=== PATIENT | male | born 1965 | race Caucasian/White ===

== ENCOUNTER 2016-08-26 11:57 | Emergency (ER) | payer OTHER ==
[~2016-08-26] VITALS: Ht 170.2 cm; Wt 77.1 kg
[2016-08-26 12:08] VITALS: BP 147/89
--- NOTE | 2016-08-26 15:42 | ED HAND/WRIST INJURY COMPLAINT ---
History of Present Illness General Chief Complaint: Laceration Procedure Stated Complaint: LAC TO LFT FINGER Source: patient Exam Limitations: no limitations Vital Signs & Intake/Output Vital Signs & Intake/Output Vital Signs Date Time Temp Pulse Resp B/P Pulse O2 O2 Flow FiO2 Ox Delivery Rate 08/26 1551 Room Air 08/26 1208 97.5 75 20 147/89 99 Room Air Allergies Uncoded Allergies: CILLINS (Intermediate, DO NOT WORK 03/28/11) Triage Note: PT TO ED C/O LAC TO LEFT INDEX FINGER. SUSTAINED FRIDAY AFTERNOON FROM A KNIFE. PT STATES LAST TETANUS SHOT ABOUT 2 YEARS AGO. BANDAID OVER LAC, NOT VISUALIZED IN TRIAGE. NO BLEEDING THROUGH BANDAID NOTED. PT CONCERNED "I HIT A TENDON, I PLAY GUITAR". Triage Nurses Notes Reviewed? yes Duration: day(s): (3), constant, continues in ED Timing: recent history Injury Environment: home Pain/Injury Location: Left: 2nd finger. HPI: 51-year-old male comes into emergency room for further evaluation of a laceration to his left second finger 3 days ago. Patient reports that he punctured himself with a knife by accident. Patient reports that he comes in now for further evaluation. Denies any redness on discharge fever chills. Some associated swelling to the area. Some limited range of motion. Patient was concerned about possible tendon injury. Patient at the lateral aspect of his left second digit. (PATTY CHI) Past History Travel History Traveled to [place] past 21 day No Medical History Any Pertinent Medical History? see below for history Neurological: VASOVAGAL Respiratory: 20% LUNG CAPACITY Surgical History Surgical History: non-contributory Psychosocial History What is your primary language Indonesian Tobacco Use: Never used ETOH Use: occasional use Illicit Drug Use: denies illicit drug use Family History Hx Contributory? No (PATTY CHI) Review of Systems Review of Systems Constitutional: Reports: no symptoms. EENTM: Reports: no symptoms. Respiratory: Reports: no symptoms. Cardiovascular: Reports: no symptoms. GI: Reports: no symptoms. Genitourinary: Reports: no symptoms. Musculoskeletal: Reports: see HPI. Skin: Reports: see HPI. Neurological/Psychological: Reports: no symptoms. Hematologic/Endocrine: Reports: no symptoms. Immunologic/Allergic: Reports: no symptoms. All Other Systems: Reviewed and Negative (PATTY CHI) Physical Exam Physical Exam General Appearance: well developed/nourished Head: atraumatic Eyes: Bilateral: normal appearance. Ears, Nose, Throat: normal ENT inspection, hearing grossly normal Neck: normal inspection Cardiovascular/Respiratory: no respiratory distress Back: normal inspection Hand Left: 2nd finger (small puncture/laceration), completely approximated, no erythema, no warmth/discharge, some mild soft tissue swelling. Limited range of motion. Difficulty extending finger completely Hand Right: normal inspection Neurologic/Tendon: normal sensation, normal motor functions, responds to pain, no evidence tendon injury, no pulse deficit Skin: intact, normal color, warm/dry Lymphatic: no anterior cervical alex (PATTY CHI) Progress Differential Diagnosis: felon, fracture, septic arthritis, sprain, tenosynovitis , soft tissue foreign body, tendon laceration, Plan of Care: Orders Procedure Date/time Status XRY-FINGERS, LEFT 08/26 1541 Active Comments: 08/26/2016 5:45:24 PM No suspicion for tendon laceration at this time. Limited range of motion secondary to swelling. There is no signs of infection. Patient will have wound observed. No need for antibiotics at this time. (PATTY CIH) Departure Departure Disposition: HOME OR SELF CARE Condition: Stable Clinical Impression Primary Impression: Puncture wound of finger Referrals: RANDY GRIFFIN MD (PCP/Family) Additional Instructions: Return if any redness swelling discharge fever or chills. Return if any other concerns worsening symptoms. Please go over all results of today's visit with your primary care doctor. Contact your primary care doctor to let them know you were here in the emergency room. There may be nonspecific findings which may not be related to your visit today here in the emergency room but may require further evaluation and chronic monitoring by your primary care doctor. If you had a laceration today the chance of foreign body always remains. You should follow-up with your primary care doctor for recheck in 3-5 days for a wound check. If you had an x-ray done there is a chance that a fracture could have been missed on initial read and you should follow-up with your primary care doctor for repeat x-rays if symptoms persist. If your blood pressure was elevated here in the emergency room please have rechecked by her primary care doctor within the next 48 hours by your primary care doctor. If you were prescribed a narcotic here in the emergency room or any type of controlled substances you're not allowed to drive while taking this medication or operate any type of heavy machinery. Narcotics can make you feel lightheaded dizziness nausea and can cause constipation. You may need to machine pecan picker a stool softener. Thank you for choosing [facility] emergency room. Please return to the emergency room immediately if you have any other concerns worsening of symptoms. Departure Forms: Customer Survey General Discharge Information (PATTY CHI) PA/SHEET METAL ERECTOR Co-Sign Statement Statement: ED Attending supervision documentation- [] I saw and evaluated the patient. I have also reviewed all the pertinent lab results and diagnostic results. I agree with the findings and the plan of care as documented in the PA's/SHEET METAL ERECTOR's documentation. [X] I have reviewed the ED Record and agree with the PA's/SHEET METAL ERECTOR's documentation. [] Additions or exceptions (if any) to the PAs/SHEET METAL ERECTOR's note and plan are summarized below: [] (AUGUSTA CELESTIN,RANJEET)
--- NOTE | 2016-08-26 16:19 | RADIOLOGY REPORT ---
EXAMINATION: XR FINGER, LEFT CLINICAL INFORMATION: Concern for fracture left index finger. Pain after cutting on shelf COMPARISON: None TECHNIQUE: Three views of the left index finger. FINDINGS: The bones and soft tissues are normal. No fracture. Alignment is anatomic. Joint spaces are maintained. IMPRESSION: Normal left index finger radiographs.
== END 2016-08-26 16:35 ==
LOC: ERH 11:57
DX: S61.231A Puncture wound without foreign body of left index finger without damage to nail, initial encounter (principal); W26.0XXA Contact with knife, initial encounter
CPT/HCPCS: 73140-LT

== ENCOUNTER 2017-11-27 17:40 | Emergency (ER) | payer OTHER, MEDICARE ==
[~2017-11-27] VITALS: Ht 167.6 cm; Wt 77.1 kg
--- NOTE | 2017-11-27 17:48 | ED HEADACHE COMPLAINT ---
History of Present Illness General Chief Complaint: Headache Stated Complaint: SIB WALKIN, HEAD STRIKE, Source: patient Exam Limitations: no limitations Vital Signs & Intake/Output Vital Signs & Intake/Output Vital Signs Date Time Temp Pulse Resp B/P B/P Pulse O2 O2 Flow FiO2 Mean Ox Delivery Rate 11/27 1744 99.1 94 16 152/102 97 Room Air Allergies Uncoded Allergies: CILLINS (Intermediate, DO NOT WORK 03/28/11) Triage Nurses Notes Reviewed? yes Onset: 3 days ago Duration: day(s): Timing: recent history Quality/Severity: moderate Severity Numbers: 7 Head Injury Location: frontal HPI: 52YO MALE with hx of COPD presents to ED complaining of head injury 3 days ago. Patient was sent in by urgent care for further evaluation. Patient states he got hit in the head by a tree branch, he sustained superficial abrasion to forehead. No loss of conciousness following the injury. Patient reports persistent headache since injury, described as 7-8/10 currently. Patient also reports neck soreness since injury. Reports left arm and leg weakness since the injury. Patient also reports right eye blurry vision however no direct impact to eye. (Ceci Narvaez) Past History Travel History Traveled to [place] past 21 day No Medical History Any Pertinent Medical History? see below for history Neurological: VASOVAGAL Respiratory: 20% LUNG CAPACITY Tetanus Vaccine: 08/26/16 Surgical History Surgical History: non-contributory Psychosocial History What is your primary language Kyrgyz Family History Hx Contributory? No (Ceci Narvaez) Review of Systems Review of Systems Constitutional: Reports: no symptoms. Eyes: Reports: see HPI. Ears, Nose, Throat, Mouth: Reports: no symptoms. Respiratory: Reports: no symptoms. Cardiovascular: Reports: no symptoms. Gastrointestinal/Abdominal: Reports: no symptoms. Genitourinary: Reports: no symptoms. Musculoskeletal: Reports: see HPI. Skin: Reports: see HPI. Neurological/Psychological: Reports: see HPI. Hematologic/Endocrine: Reports: no symptoms. Endocrine: Reports: no symptoms. Immunologic/Allergic: Reports: no symptoms. All Other Systems: Reviewed and Negative (Ceci Narvaez) Physical Exam Physical Exam General Appearance: well developed/nourished, no apparent distress, alert, awake Head: linear superfical abrasion to forehead, no bony tenderness Eyes: Bilateral: normal appearance, PERRL, EOMI. Ears, Nose, Throat: normal pharynx, normal ENT inspection, hearing grossly normal, no hemotympanum Neck: normal inspection, supple, full range of motion, MILD tenderness to bilateral neck, no cervical deformity Respiratory: no respiratory distress Back: normal inspection, normal range of motion, no vertebral tenderness Extremities: normal inspection, normal range of motion Psychiatric: awake, alert, oriented x 3 Cranial Nerves: normal hearing, normal speech, PERRL, CN II-XII intact, strength 5/5 equal bilateral upper extremities Coordination/Gait: normal finger to nose Motor/Sensory: no motor/sensory deficits Skin: normal color, warm/dry, mild forehead abrasion as mentioned above Core Measures Sepsis Present: No Sepsis Focused Exam Completed? No (Bren LANDRY,Ceci Matthews) Progress Differential Diagnosis: cluster AGUILERA, IC mass/tumor, intracranial Hem., migraine AGUILERA, musculoskeletal pain, subarach. Hem., tension AGUILERA, concussion Plan of Care: CT imaging of head shows no acute ICH. Cervical spine without fractures. Patient 's headache likely related to concussion. Patient is neurologically intact, no focal neurologic deficit, he is answering questions readily, stead gait. Vital signs are stable, patient in no acute distress. I recommend vision testing here in the ED with eye chart however patient declined. I offered fluoroscene staining of eye to assess for corneal abrasions however patient declines. He prefers to follow up with his opthalmologist tomorrow. The patient reports he was wearing saftey glassess during the injury. The patient was given strict return precautions. The patient agrees with the plan of care. Diagnostic Imaging: Viewed by Me: CT Scan. Discussed w/RAD: CT Scan. Radiology Impression: PATIENT: POLO KELLY PRESENT AGE: 52 PATIENT ACCOUNT NO: [id number] : 66 LOCATION: [facility] ORDERING PHYSICIAN: Ceci LANDRY SERVICE DATE: 11/27/17 EXAM TYPE: CAT - CT CERV SPINE WO IV CONTRAST; CT HEAD WO IV CONTRAST EXAMINATION: CT HEAD WITHOUT CONTRAST CT CERVICAL SPINE WITHOUT CONTRAST CLINICAL INFORMATION: Status post head injury. Assess for fracture bleed. COMPARISON: None. TECHNIQUE: Multidetector CT imaging of the head and cervical spine was performed without the use of intravenous contrast. Coronal and sagittal reformatted images were generated at the technologist workstation. DLP: 935.15 mGy-cm. FINDINGS: CT head : There is no evidence of acute intracranial hemorrhage or territorial infarction. No abnormal mass-effect or midline shift is seen. Jones to white matter differentiation is well preserved. No extra-axial fluid collections are identified. The ventricles are normal in size. There is no abnormal attenuation within the brain parenchyma. The osseous structures and soft tissues are normal. The mastoid air cells and visualized portions of the paranasal sinuses are well- aerated. CT cervical spine: There is a mild levoscoliosis. Intervertebral disc heights are maintained. Vertebral body contours are normal and no fractures are seen. There is normal alignment of the facet joints. The lateral masses of C1 and C2 appear normally aligned and the dens is intact. Atlantooccipital articulations are maintained bilaterally. There are calcifications in the palatine tonsils bilaterally. There is no cervical lymphadenopathy. The thyroid gland appears normal. The visualized lung tobar are well-aerated. There are no pleural effusions or pneumothoraces. IMPRESSION: 1. There are no acute intracranial findings. There are no fractures or large scalp contusions or hematomas. 2. There are no acute fractures or subluxations in the cervical spine. DICTATED BY: Jose Melo MD DATE/TIME DICTATED:11/27/171838 REMOTE CODERS:PHYLICIA DATE/TIME TRANSCRIBED:11/27/171838 CONFIDENTIAL, DO NOT COPY WITHOUT APPROPRIATE AUTHORIZATION. <Electronically signed in Other Vendor System> SIGNED BY: Jose Melo MD 11/27/17 [id number] (Ceci Narvaez) Departure Departure Disposition: HOME OR SELF CARE Condition: Stable Clinical Impression Primary Impression: Head injury Qualifiers: Encounter type: initial encounter Qualified Code: S09.90XA - Unspecified injury of head, initial encounter Secondary Impressions: Blurry vision, right eye Referrals: Zan Alcantar MD (PCP/Family) Additional Instructions: Follow-up with either doctor, call to make an appointment for Friday. You were given information on signs and symptoms of a concussion. If you have any worsening symptoms or other concerns please return to emergency department. Please note that there might be incidental findings in your evaluation that are unrelated to the current emergency department visit. Please notify your primary care doctor about this emergency department visit in order to obtain and review all of the testing performed so that these incidental findings can be monitored as needed. If you had an x-ray performed, please understand that some fractures may not be seen on the initial set of x-rays. If your symptoms persist you might need a repeat set of x-rays to check for such a fracture. If you had a laceration evaluated, please understand that foreign bodies such as glass or wood may not be visible to the naked eye or on plain x-rays. If the wound becomes red, swollen, increasingly more painful or if there is any drainage from the wound, please have it reevaluated by a physician for the possibility of a retained foreign body. If you're unable to follow up as outlined in the discharge instructions please return to the emergency department. Thank you for choosing the [facility] Emergency Department for your care. It was a pleasure to serve you today. Departure Forms: Customer Survey General Discharge Information (Bren LANDRY,Ceci Matthews) PA/ROVING INSPECTOR Co-Sign Statement Statement: ED Attending supervision documentation- [] I saw and evaluated the patient. I have also reviewed all the pertinent lab results and diagnostic results. I agree with the findings and the plan of care as documented in the PA's/ROVING INSPECTOR's documentation. [X] I have reviewed the ED Record and agree with the PA's/ROVING INSPECTOR's documentation. [] Additions or exceptions (if any) to the PAs/ROVING INSPECTOR's note and plan are summarized below: [] (Digna CELESTIN,Jayme Spaulding)
--- NOTE | 2017-11-27 18:46 | CT SCAN REPORT ---
EXAMINATION: CT HEAD WITHOUT CONTRAST CT CERVICAL SPINE WITHOUT CONTRAST CLINICAL INFORMATION: Status post head injury. Assess for fracture bleed. COMPARISON: None. TECHNIQUE: Multidetector CT imaging of the head and cervical spine was performed without the use of intravenous contrast. Coronal and sagittal reformatted images were generated at the technologist workstation. DLP: 935.15 mGy-cm. FINDINGS: CT head: There is no evidence of acute intracranial hemorrhage or territorial infarction. No abnormal mass-effect or midline shift is seen. Jones to white matter differentiation is well preserved. No extra-axial fluid collections are identified. The ventricles are normal in size. There is no abnormal attenuation within the brain parenchyma. The osseous structures and soft tissues are normal. The mastoid air cells and visualized portions of the paranasal sinuses are well-aerated. CT cervical spine: There is a mild levoscoliosis. Intervertebral disc heights are maintained. Vertebral body contours are normal and no fractures are seen. There is normal alignment of the facet joints. The lateral masses of C1 and C2 appear normally aligned and the dens is intact. Atlantooccipital articulations are maintained bilaterally. There are calcifications in the palatine tonsils bilaterally. There is no cervical lymphadenopathy. The thyroid gland appears normal. The visualized lung tobar are well-aerated. There are no pleural effusions or pneumothoraces. IMPRESSION: 1. There are no acute intracranial findings. There are no fractures or large scalp contusions or hematomas. 2. There are no acute fractures or subluxations in the cervical spine.
[2017-11-27 19:31] VITALS: BP 143/82
== END 2017-11-27 19:32 ==
LOC: ERH 17:40
DX: S09.90XA Unspecified injury of head, initial encounter (principal); H53.8 Other visual disturbances; W22.8XXA Striking against or struck by other objects, initial encounter; Y92.9 Unspecified place or not applicable; Y93.H9 Activity, other involving exterior property and land maintenance, building and construction